=== PATIENT | female | born 1965 | race Two or more races ===

== ENCOUNTER 2018-07-02 15:22 | Outpatient (CLI) | payer OTHER | END 2018-07-02 15:33 | disposition home or self-care (01) | LOC: NUCLEAR 15:22 | DX: M25.461 Effusion, right knee (principal); M25.462 Effusion, left knee; R60.0 Localized edema; M79.604 Pain in right leg; M79.605 Pain in left leg; I87.2 Venous insufficiency (chronic) (peripheral) ==

== ENCOUNTER → 2020-06-28 | Outpatient (CLI) | payer OTHER | END | disposition home or self-care (01) | LOC: RAD 12:19 | PROVIDERS: ATTEND Orthopaedic Surgery | DX: M25.561 Pain in right knee (principal); M25.562 Pain in left knee ==

== ENCOUNTER 2024-05-28 09:20 | Outpatient (CLI) | payer OTHER | END 2024-05-28 09:33 | disposition home or self-care (01) | LOC: RAD 09:20 | PROVIDERS: ATTEND Orthopaedic Surgery | DX: M25.561 Pain in right knee (principal); M25.562 Pain in left knee ==